=== PATIENT | male | born 1985 | race African-American/Black ===

== ENCOUNTER 2017-11-09 20:36 | Emergency (ER) | payer BC ==
[~2017-11-09] VITALS: Ht 185.4 cm; Wt 111.1 kg
[2017-11-09] MEDS ORDERED: VALIUM5 MG PO (22:00)
[2017-11-09] MEDS ORDERED: MOBIC15 MG PO (22:00)
[2017-11-09] MEDS ORDERED: NORCO 5-325 TA1 EACH PO (22:00)
[2017-11-09 22:06] VITALS: BP 165/99
== END 2017-11-09 22:10 | disposition home or self-care (01) ==
LOC: ER 20:36
DX: S39.012A Strain of muscle, fascia and tendon of lower back, initial encounter (principal); F17.210 Nicotine dependence, cigarettes, uncomplicated; X50.0XXA Overexertion from strenuous movement or load, initial encounter; Y92.89 Other specified places as the place of occurrence of the external cause; Y93.89 Activity, other specified; Y99.8 Other external cause status